=== PATIENT | male | born 2000 | race Caucasian/White ===

== ENCOUNTER 2023-04-01 18:49 | Emergency (ER) | payer OTHER ==
[2023-04-01 19:02] VITALS: BP 130/63
--- NOTE | 2023-04-01 19:12 | ED Physician Documentation ---
History of Present Illness - Stated complaint Stated Complaint: RT HAND BREAKOUT - Chief complaint Chief Complaint: General - Additonal information Additional information: 22-year-old male presents emergency department for evaluation of a rash on his hand that began about 1 week ago. He reports a sandpapery vesicular rash that be began on the dorsum of his index finger and right small finger that has subsequently extended to the dorsum of the right hand over the last week he has applied Vaseline and antibiotic ointment. He describes it is itchy. He has never had this before. Denies any new soaps or lotions. Review of Systems Constitutional: denies: Fever Skin: reports: Rash PD PAST MEDICAL HISTORY - Past Medical History Past Medical History: No Cardiovascular: None Respiratory: None Neuro: None Endocrine/Autoimmune: None GI: None : None HEENT: None Psych: None Musculoskeletal: None Derm: None - Past Surgical History Past Surgical History: No - Present Medications Home Medications: Ambulatory Orders Medication Instructions Recorded Confirmed Triamcinolone 0.5% Cream [Kenalog 1 applic TOP BID #15 gm 04/01/23 0.5% Cream] - Allergies Allergies/Adverse Reactions: Allergies Allergy/AdvReac Type Severity Reaction Status Date / Time peanut Allergy Anaphylaxis Verified 04/01/23 18:57 - Social History Does the pt smoke?: No Smoking Status: Never smoker Does the pt drink ETOH?: No Does the pt have substance abuse?: No - Immunizations Immunizations are current?: Yes PD ED PE EXPANDED - Derm Derm: Other (Crops of clear vesicles on the dorsum of his right hand. They do have a tapioca like appearance. On the dorsum of the index and small finger they have become confluent and drained. No surrounding induration or erythema.) Results - Vitals Vitals: Vital Signs - 24 hr 04/01/23 18:57 Temperature 36.4 C L Heart Rate 67 Respiratory 16 Rate Blood Pressure 130/63 O2 Saturation 99 Oxygen O2 Source Room air PD Medical Decision Making - ED course Complexity details: d/w patient ED course: 20-year-old male here with a rash on the dorsum of his right hand that began 1 week ago. The appearance of the rash is consistent with a dyshidrotic eczema. Clinically there is nothing that would suggest bacterial infection or HSV. Patient is fully vaccinated including for chickenpox. I discussed with patient the usual treatment which would include a topical steroid. He is advised to follow closely with [facility] for referral to dermatology. The usual emergent return precautions were discussed for worsening symptoms. Departure - Departure Disposition: 01 Home, Self Care Clinical Impression: Dyshidrotic eczema Condition: Stable Record reviewed to determine appropriate education?: Yes Prescriptions: Triamcinolone 0.5% Cream [Kenalog 0.5% Cream] 1 applic TOP BID #15 gm Comments: As discussed at the bedside the rash on your right hand is consistent with a condition called dyshidrotic eczema. I am sending a prescription for a steroid ointment called triamcinolone to the [facility] in [place]. You should apply this to your rash twice daily. I encourage you to wear cotton garden gloves of your hands at night when you apply the steroid cream. Please discuss this ED visit with [facility]. In the long-term you may need referral to dermatology for further evaluation and management. Return to the ER if you are having worsening symptoms.
== END 2023-04-01 19:21 | disposition home or self-care (01) ==
LOC: ED 18:49
DX: L30.1 Dyshidrosis [pompholyx] (principal)
CPT/HCPCS: 99281; 99283